=== PATIENT | female | born 1950 | race Caucasian/White ===

== ENCOUNTER 2016-09-06 14:36 | Outpatient (CLI) | payer MEDICAID ==
[2016-09-06 18:57] LABS: EOSINOPHILS # (AUTO) 0.2 10^3/uL (0.0-0.7); EOSINOPHILS % (AUTO) 6.1 %; HCT - HEMATOCRIT 37.8 % (37.0-47.0); HGB - HEMOGLOBIN 12.5 g/dL (12.0-16.0); LYMPHOCYTES # (AUTO) 1.2 10^3/uL (1.5-3.5); MEAN CORPUSCULAR HEMOGLOBIN 29.5 pg (27.0-31.0); MEAN CORPUSCULAR VOLUME 89.5 fL (81.0-99.0); MEAN PLATELET VOLUME 9.7 fL (7.9-10.8); MONOCYTES # (AUTO) 0.3 10^3/uL (0.0-1.0); MONOCYTES % (AUTO) 8.2 %; NEUTROPHILS # (AUTO) 2.1 10^3/uL (1.5-6.6); NEUTROPHILS % (AUTO) 53.7 %; NUCLEATED RED BLOOD CELLS AUTO 0.1 /100WBC; RED BLOOD COUNT 4.22 10^6/uL (4.20-5.40); RED CELL DISTRIBUTION WIDTH 13.8 % (12.0-15.0)
[2016-09-06 19:15] LABS: ALBUMIN/GLOBULIN RATIO 1.5 (1.0-2.2); BILIRUBIN,TOTAL 0.6 mg/dL (0.2-1.0); CREATININE 0.7 mg/dL (0.4-1.0); TOTAL PROTEIN 6.8 g/dL (6.7-8.2)
[2016-09-06 19:39] LABS: THYROID STIMULATING HORMONE 1.39 uIU/mL (0.34-5.60)
== END 2016-09-06 14:37 | disposition home or self-care (01) ==
LOC: LAB.F 14:36
PROVIDERS: ATTEND Nurse Practitioner Family
DX: L65.9 Nonscarring hair loss, unspecified (principal)
CPT/HCPCS: 36415; 80053; 84439; 84443; 84481; 85025

== ENCOUNTER 2016-09-24 08:19 | Outpatient (CLI) | payer MEDICAID ==
[2016-09-24 12:30] LABS: CHOL/HDL RATIO 2.8 (<4.4); CHOLESTEROL 215 mg/dL; HDL CHOLESTEROL 77 mg/dL; IRON 91 ug/dL (28-170); LDL/HDL RATIO 1.6 (<4.4); TOTAL IRON BINDING CAPACITY 287 ug/dL (250-450); TRANSFERRIN 205 mg/dL (192-382); TRIGLYCERIDES 84 mg/dL; VLDL CHOLESTEROL 17 mg/dL
== END 2016-09-24 08:20 | disposition home or self-care (01) ==
LOC: LAB.F 08:19
PROVIDERS: ATTEND Nurse Practitioner Family
DX: Z13.6 Encounter for screening for cardiovascular disorders (principal)
CPT/HCPCS: 36415; 80061; 83540; 84466

== ENCOUNTER 2019-05-31 07:14 | Outpatient (CLI) | payer MEDICARE, OTHER ==
[2019-05-31 10:45] LABS: BUN - BLOOD UREA NITROGEN 24 mg/dL (6-20); CALCIUM 8.8 mg/dL (8.5-10.3); CARBON DIOXIDE - CO2 29 mmol/L (21-32); CHLORIDE 101 mmol/L (101-111); CHOL/HDL RATIO 3.1 (<4.4); CHOLESTEROL 227 mg/dL; CREATININE 0.9 mg/dL (0.4-1.0); GFR - MDRD 62 (>89); GLUCOSE 90 mg/dL (70-100); HDL CHOLESTEROL 74 mg/dL; LDL CHOLESTEROL,CALCULATED 138 mg/dL; LDL/HDL RATIO 1.9 (<4.4); SODIUM 137 mmol/L (135-145); VLDL CHOLESTEROL 15 mg/dL
== END 2019-05-31 07:15 | disposition home or self-care (01) ==
LOC: LAB.S 07:14
PROVIDERS: ATTEND Physician Assistant
DX: L65.9 Nonscarring hair loss, unspecified (principal); H04.123 Dry eye syndrome of bilateral lacrimal glands; Z79.899 Other long term (current) drug therapy
CPT/HCPCS: 36415; 80048; 80061; 82306; 83721; 84443

== ENCOUNTER 2020-02-18 16:51 | Outpatient (CLI) | payer MEDICARE, OTHER | END 2020-02-18 16:52 | disposition home or self-care (01) | LOC: COV 16:51 | PROVIDERS: ATTEND Family Medicine | DX: R09.81 Nasal congestion (principal); Z20.828 Contact with and (suspected) exposure to other viral communicable diseases ==

== ENCOUNTER 2020-07-28 14:12 | Outpatient (CLI) | payer MEDICARE, OTHER ==
--- NOTE | 2020-07-29 12:10 | Mammography Report ---
BILATERAL DIGITAL SCREENING MAMMOGRAM 3D/2D WITH EXAGGERATED CC: 07/28/2020 CLINICAL: Family history of breast cancer. Comparison mammograms 01/01/2016, 10/11/2013. The tissue of both breasts is heterogeneously dense. Th is may lower the sensitivity of mammography. No significant masses, calcifications, or other findings are seen in either breast. IMPRESSION: NEGATIVE There is no mammographic evidence of malignancy. A 1 year screening mammogram is recommended. This exam was interpreted at Station ID: [id number]. NOTE: For mammograms, a report in lay terms will be sent to the patient. Approximately 15% of breast malignancies will not be visualized mammographically. In the management of a palpable breast mass, a negative mammogram must not discourage biopsy of a clinically suspicious lesion. Electronically Signed By: Ayan Solo M.D. slc/:07/28/2020 15:33:45 ACR BI-RADS Category 1: Negative 3341F PARENCHYMAL PATTERN: (D) - The breast(s) demonstrate(s) heterogeneously dense fibroglandular jose montanez. BI-RADS CATEGORY: (1) - 1 RECOMMENDATION: (ANNUAL) - Recommend routine annual screening mammography. [id number] 1 year screening LATERALITY: (B)
== END 2020-07-28 14:13 | disposition home or self-care (01) ==
LOC: DI.S 14:12
PROVIDERS: ATTEND Obstetrics & Gynecology
DX: Z12.31 Encounter for screening mammogram for malignant neoplasm of breast (principal)

== ENCOUNTER 2021-11-21 15:26 | Outpatient (CLI) | payer MEDICARE, OTHER ==
--- NOTE | 2021-11-21 15:34 | XRAY Report ---
PROCEDURE: Hand 3 View RT INDICATIONS: RIGHT FINGER PAIN/3RD AND 4TH TECHNIQUE: 3 views of the hand(s) acquired. COMPARISON: None FINDINGS: Bones: No fractures or dislocations. No suspicious bony lesions. Scattered mild IP degenerative na rrowing. Soft tissues: No suspicious soft tissue calcifications. IMPRESSION: Scattered IP arthritic change. Reviewed by: Kim Griggs MD on 11/21/2021 3:33 PM PDT Approved by: Kim Griggs MD on 11/21/2021 3:33 PM PDT Station ID: [id number]
== END 2021-11-21 15:27 | disposition home or self-care (01) ==
LOC: DI.S 15:26
PROVIDERS: ATTEND Physician Assistant Medical
DX: M19.041 Primary osteoarthritis, right hand (principal)

== ENCOUNTER 2023-03-18 08:15 | Outpatient (CLI) | payer MEDICARE ==
--- NOTE | 2023-03-18 09:27 | DEXA Report ---
PROCEDURE: Dexa Spine and/or Hip INDICATIONS: POST MENOPAUSAL TECHNIQUE: Dual energy x-ray absorptiometry (DXA) was performed on a [employer] System. Regions measur ed are the AP Spine, femoral neck, and if needed forearm. COMPARISON: None FINDINGS: Lumbar Spine: Bone Mineral Density 0.919 g/cm/cm,T score -2.2. Left Femoral Neck: Bone Mineral Density 0.692 g/cm/cm, T score -2.5. Left Hip: Bone Mineral Density 0.726 g/cm/cm,T score -2.2. (T score greater or equal to -1.0: NORMAL) (T score from -1.1 to -2.4: OSTEOPENIA) (T score less than or equal to -2.5 to: OSTEOPOROSIS) Impression: By WHO criteria, this patient has osteoporosis. Patients with diagnosis of osteoporosis or osteopenia should have regular bone mineral density assess ment. For those eligible for Medicare, routine testing is allowed once every 2 years. Testing frequ ency can be increased for patients who have rapidly progressing disease or for those who are receivin g medical therapy to restore bone mass. Reviewed by: Floyd Wellington MD on 03/18/2023 9:26 AM PST Approved by: Floyd Wellington MD on 03/18/2023 9:26 AM PST Station ID: [id number]
== END 2023-03-18 08:16 | disposition home or self-care (01) ==
LOC: DI 08:15
PROVIDERS: ATTEND Registered Nurse
DX: M81.0 Age-related osteoporosis without current pathological fracture (principal); Z78.0 Asymptomatic menopausal state

== ENCOUNTER 2023-03-18 08:17 | Outpatient (CLI) | payer MEDICARE ==
--- NOTE | 2023-03-23 12:58 | Mammography Report ---
BILATERAL DIGITAL SCREENING MAMMOGRAM 3D/2D: 03/18/2023 CLINICAL: Routine screening. Comparison is made to exams dated: 07/28/2020 mammogram - [facility], 02/01/2016 ma mmogram, and 10/11/2013 mammogram - [facility]. Both breasts are heterogeneously dense, which may obscure small masses (category c / 51-75% glandular tissue). No significant masses, calcifications, or other findings are seen in either breast. There has been no significant interval change. IMPRESSION: NEGATIVE There is no mammographic evidence of malignancy. A 1 year screening mammogram is recommended. Based on the Tyrer Cuzick model (a risk assessment model) the patients lifetime risk is 7.8% and her 10 year risk is 5.3%. According to the ACR, ACS, and NCCN guidelines, an annual breast MRI exam hugo g with mammogram is recommended if the patients lifetime risk is 20% or greater. This exam was interpreted at Station ID: [id number]. NOTE: For mammograms, a report in lay terms will be sent to the patient. Approximately 15% of breast malignancies will not be visualized mammographically. In the management of a palpable breast mass, a negative mammogram must not discourage biopsy of a clinically suspicious lesion. Electronically Signed By: Benjamín lebron/siomara:03/18/2023 12:15:11 letter sent: No_Letter ACR BI-RADS Category 1: Negative 3341F PARENCHYMAL PATTERN: (D) - The breast(s) demonstrate(s) heterogeneously dense fibroglandular parshamikay lisseth. BI-RADS CATEGORY: (1) - 1 Mammogram [id number] 1 year screening LATERALITY: (B)
== END 2023-03-18 08:18 | disposition home or self-care (01) ==
LOC: DI 08:17
PROVIDERS: ATTEND Registered Nurse
DX: Z12.31 Encounter for screening mammogram for malignant neoplasm of breast (principal); R92.333 Mammographic heterogeneous density, bilateral breasts

== ENCOUNTER 2023-09-12 10:18 | Emergency (ER) | payer MEDICARE ==
[2023-09-12 10:43] VITALS: O2SAT 99
--- NOTE | 2023-09-12 12:01 | XRAY Report ---
PROCEDURE: Knee 4+V LT INDICATIONS: Trauma TECHNIQUE: 4 views of the knee(s) were acquired. COMPARISON: None. FINDINGS: Bones: No fractures or dislocations. No suspicious bony lesions. Medial tibiofemoral joint space narrowing with osteophytosis. Soft tissues: No knee joint effusion. No suspicious soft tissue calcifications or masses. IMPRESSION: No acute bony abnormality. If there remains a high clinical concern for fracture, including inability to bear weight, consider cross-sectional imaging to exclude an occult fracture. Reviewed by: Maximus Balderas MD on 09/12/2023 11:59 AM PDT Approved by: Maximus Balderas MD on 09/12/2023 11:59 AM PDT Station ID: [id number]
--- NOTE | 2023-09-12 12:01 | XRAY Report ---
PROCEDURE: Wrist 3+V RT INDICATIONS: injury/wrist pain TECHNIQUE: 4 views of the wrist were acquired. COMPARISON: None. FINDINGS: Bones: No fractures or dislocations. No suspicious bony lesions. Soft tissues: No suspicious soft tissue calcifications or masses. IMPRESSION: No acute bony abnormality. Reviewed by: Maximus Balderas MD on 09/12/2023 12:00 PM PDT Approved by: Maximus Balderas MD on 09/12/2023 12:00 PM PDT Station ID: [id number]
--- NOTE | 2023-09-12 12:08 | ED Physician Documentation ---
PD HPI Fall - Stated complaint Stated Complaint: GLF,BACK/HEAD PX - Chief complaint Chief Complaint: Trauma Ext - History obtained from History obtained from: Patient - History of Present Illness Mechanism of injury: Tripped Fall distance: Standing position Where injury occurred: [place] Timing - onset: How many days ago (2) Injury(ies) location: Head, Back (right flank to right sided abdomen. Not at ribs.), Right Hand Quality of pain: Aching Associated symptoms: AMS (dazed for several minutes, with nausea and vomited once. Has continued with some nausea and headache.). No: LOC, Neck pain, Weakness, Paresthesias Contributing factors: No: Anticoagulated Review of Systems Eyes: denies: Loss of vision, Decreased vision, Photophobia Neurologic: reports: Generalized weakness, Headache. denies: Focal weakness, Numbness PD PAST MEDICAL HISTORY - Past Medical History Past Medical History: Yes Cardiovascular: None Respiratory: None Neuro: None Endocrine/Autoimmune: None GI: None HR LEADER: Fibroids : None HEENT: None Psych: None Musculoskeletal: None Derm: None - Past Surgical History Past Surgical History: Yes /HR LEADER: Other - Present Medications Home Medications: Ambulatory Orders Medication Instructions Recorded Confirmed Calcium Citrate 500 mg PO DAILY 09/12/23 09/12/23 Cholecalciferol (Vitamin D3) 50 mcg PO DAILY 09/12/23 09/12/23 [Vitamin D3] Magnesium Oxide [Mag Ox] 400 mg PO DAILY 09/12/23 09/12/23 Melatonin 5 mg PO HS 09/12/23 09/12/23 Multivitamin 1 each PO DAILY 09/12/23 09/12/23 - Allergies Allergies/Adverse Reactions: Allergies Allergy/AdvReac Type Severity Reaction Status Date / Time Penicillins Allergy Rash Verified 09/12/23 10:32 Sulfa (Sulfonamide Allergy Nausea Verified 09/12/23 10:32 Antibiotics) - Social History Does the pt smoke?: No Smoking Status: Never smoker Does the pt drink ETOH?: Yes Does the pt have substance abuse?: No - Immunizations Immunizations are current?: No Immunizations: Other immun not current - POLST Patient has POLST: No PD ED PE NORMAL - Vitals Vital signs reviewed: Yes - General General: Alert and oriented X 3, No acute distress, Well developed/nourished - HEENT HEENT: PERRL, EOMI, Other (tenderness back of head without deformity. ) - Neck Neck: Supple, no meningeal sign, No bony TTP, No adenopathy - Cardiac Cardiac: RRR, No murmur - Respiratory Respiratory: Clear bilaterally - Abdomen Abdomen: Soft, Non tender - Back Back: No spinal TTP, Other (some soft tissue tender right flank to lateral abd area. ) - Derm Derm: Normal color, Warm and dry - Extremities Extremities: Other (right wrist with tender dorsal aspect with ROM and no deformity. knees tender anteriorly with good ROM. No noted effusion. ) Results - Vitals Vitals: Oxygen O2 Source Room air - Labs Labs: Laboratory Tests 09/12/23 12:56 Sodium 140 Potassium 3.8 Chloride 105 Carbon Dioxide 29 Anion Gap 6.0 BUN 19 Creatinine 0.9 Estimated GFR (MDRD) 62 L Glucose 88 Calcium 9.2 - Rads (name of study) head CT Relevant Findings:: Prelim report reviewed (no ICH nor fractures), EMP independent interpretation of test abd/pelvict CT Relevant Findings:: Prelim report reviewed (no noted organ injuries nor acute process. ), EMP independent interpretation of test right wrist Relevant Findings:: Prelim report reviewed, EMP independent interpretation of test (no fractures) knee xray Relevant Findings:: Prelim report reviewed, EMP independent interpretation of test (no fractures) PD Medical Decision Making - ED course Complexity details: reviewed results (no acute findings for imaging. Still having concussive syptoms, so to take it easy for couple of days.), considered differential (pt is concerned about ICH given the ongoing GALLEGOS and some nausea. Presumed mild concussive. We talked about the CT role for ICH and not for concussion itself. Can get imaging of head, also right back/abd, wrists and knees.), d/w patient Departure - Departure Disposition: 01 Home, Self Care Clinical Impression: Fall, accidental, Right wrist sprain, Head injury, Mild concussion, Abdominal muscle strain Condition: Stable Record reviewed to determine appropriate education?: Yes Follow-Up: Carlotta Hobbs ARNP [Primary Care Provider] - Comments: Your x-rays are normal without any signs of bony fracture. CT scan of the head did not show any bleeding swelling or fractures. Obviously you are having some headache still and feeling slightly off so by definition would say a mild concussion. Typically this lasts several days to week or so. Continue with some ibuprofen 2 to 3 tablets 2-3 times daily. Add Tylenol/acetaminophen 500 to 650 mg 4 times daily as well. Activity as tolerated but generally would go with security administrator activity for the next couple of days until still improving better. The CT of your abdomen did not show any organ injury nor rib fractures. Presumes some strain of the muscle of the abdominal wall. Similar suggestion of activity as tolerated with the anti-inflammatory etc. I would anticipate gradual improvement over the next several days to week more. We just do not bounce like we used to do. You can try local treatments such as heat or ice and lidocaine patches or such. Forms: PCP List Discharge Date/Time: 09/12/23 15:14
[2023-09-12] MEDS ORDERED: iohexoL-300 100 ML VIAL ONE (12:52)
[2023-09-12 13:23] LABS: CALCIUM 9.2 mg/dL (8.5-10.3); CREATININE 0.9 mg/dL (0.6-1.3); POTASSIUM 3.8 mmol/L (3.5-4.5)
[2023-09-12] MEDS: iohexoL-300 100 ML VIAL IVP ONE (14:20)
--- NOTE | 2023-09-12 14:28 | CT Report ---
PROCEDURE: Abdomen/Pelvis W INDICATIONS: fall with RUQ abd pain CONTRAST: 100 ML OMNI 300 TECHNIQUE: After the administration of intravenous contrast, a CT scan of the abdomen and pelvis was performed. Images were recorded and evaluated at appropriate window settings. Reformats: coronal and sagittal. F or radiation dose reduction, the following was used: automated exposure control, adjustment of mA and /or kV according to patient size. COMPARISON: None. FINDINGS: Image quality: Diagnostic. Lower chest: No pneumothorax. No contusions. Liver: Subcentimeter hypoattenuating liver lesions, too small to characterize by CT. Focal fat adjace nt to the falciform ligament. Gallbladder: No radiopaque stones or wall thickening. Biliary tree: No intrahepatic or extrahepatic dilation, accounting for age. Spleen: No splenomegaly. 1.1 cm pseudocystic lesion along the peripheral margin, benign in isolation. Pancreas: No pancreatic ductal dilation. Adrenals: No adrenal nodule. Kidneys and ureters: No hydronephrosis. No renal cystic lesion which requires follow up. No solid mas s. Stomach, bowel and peritoneum: No gastric or small bowel dilation. No abnormal wall thickening. No pa thologic free fluid. Diverticulosis without evidence of diverticulitis. Normal appendix. Lymph nodes: No central or retroperitoneal adenopathy. Vessels: No infrarenal aortic aneurysm. Patent portal vein. PELVIS Reproductive organs: 2.5 x 2.0 cm left ovarian mature teratoma with locules of macroscopic fat and ca lcifications; this is benign. Bladder: No abnormal wall thickening, accounting for underdistention. Pelvic lymph nodes: No pelvic adenopathy by size criteria. Bones: No aggressive osseous abnormality. Other: No significant ventral or inguinal hernia. IMPRESSION: No findings to explain the patient's right upper quadrant pain. No displaced fractures or evidence of lung or solid organ injury. Reviewed by: Maximus Balderas MD on 09/12/2023 2:26 PM PDT Approved by: Maximus Balderas MD on 09/12/2023 2:26 PM PDT Station ID: [id number]
--- NOTE | 2023-09-12 14:29 | CT Report ---
PROCEDURE: Head WO INDICATIONS: fall with persisting GALLEGOS/nasuesa TECHNIQUE: Noncontrast 4.5 mm thick angled axial sections acquired from the foramen magnum to the vertex. For r adiation dose reduction, the following was used: automated exposure control, adjustment of mA and/or kV according to patient size. COMPARISON: None. FINDINGS: Image quality: Excellent. CSF spaces: Basal cisterns are patent. No extra-axial fluid collections. Ventricles are normal in size and shape. Brain: No midline shift. No intracranial masses or hemorrhage. Batista-white matter interface is norm al. Skull and face: Calvarium and visualized facial bones are intact, without suspicious lesions. Sinuses: Visualized sinuses and mastoids are clear. IMPRESSION: No acute intracranial pathology. Reviewed by: Maximus Balderas MD on 09/12/2023 2:28 PM PDT Approved by: Maximus Balderas MD on 09/12/2023 2:28 PM PDT Station ID: [id number]
[2023-09-12] MEDS: ACETAMINOPHEN 500 MG TABLET PO STA (15:10)
[2023-09-12] MEDS: KETOROLAC 15 MG/ML VIAL IVP STA (15:10)
[2023-09-12 15:16] VITALS: BP 125/62
== END 2023-09-12 15:14 | disposition home or self-care (01) ==
LOC: ED 10:18
DX: S06.0X0A Concussion without loss of consciousness, initial encounter (principal); S63.501A Unspecified sprain of right wrist, initial encounter; S39.011A Strain of muscle, fascia and tendon of abdomen, initial encounter; W18.39XA Other fall on same level, initial encounter; W54.1XXA Struck by dog, initial encounter
CPT/HCPCS: 36415; 70450; 73110; 73564; 74177; 80048; 99283; 99284; A9270; Q9967

== ENCOUNTER 2023-12-12 07:17 | Outpatient (CLI) | payer MEDICARE ==
[2023-12-12 15:17] LABS: EOSINOPHILS # (AUTO) 0.3 10^3/uL (0.0-0.7); EOSINOPHILS % (AUTO) 6.7 %; HCT - HEMATOCRIT 41.7 % (37.0-47.0); HGB - HEMOGLOBIN 13.4 g/dL (12.0-16.0); LYMPHOCYTES # (AUTO) 1.4 10^3/uL (1.5-3.5); LYMPHOCYTES % (AUTO) 34.4 %; MEAN CORPUSCULAR HEMOGLOBIN 29.6 pg (27.0-31.0); MEAN CORPUSCULAR HGB CONC 32.1 g/dL (32.0-36.0); MEAN CORPUSCULAR VOLUME 92.3 fL (81.0-99.0); MEAN PLATELET VOLUME 11.1 fL (7.9-10.8); MONOCYTES # (AUTO) 0.4 10^3/uL (0.0-1.0); MONOCYTES % (AUTO) 9.5 %; NEUTROPHILS # (AUTO) 1.9 10^3/uL (1.5-6.6); NEUTROPHILS % (AUTO) 48.2 %; PLT - PLATELET COUNT 260 10^3/uL (130-450); RED BLOOD COUNT 4.52 10^6/uL (4.20-5.40); RED CELL DISTRIBUTION WIDTH 13.8 % (12.0-15.0)
[2023-12-12 15:39] LABS: ALBUMIN/GLOBULIN RATIO 1.5 (1.0-2.2); ALKALINE PHOSPHATASE 61 IU/L (42-121); ALT ALANINE AMINOTRANSFERASE 10 IU/L (10-60); AST ASPARTATE AMINOTRANSFERASE 16 IU/L (10-42); BILIRUBIN,TOTAL 0.6 mg/dL (0.2-1.0); BUN - BLOOD UREA NITROGEN 17 mg/dL (6-20); CARBON DIOXIDE - CO2 29 mmol/L (21-32); CHLORIDE 104 mmol/L (101-111); CHOL/HDL RATIO 2.9 (<4.4); CHOLESTEROL 211 mg/dL; CREATININE 0.8 mg/dL (0.6-1.3); GFR - MDRD 71 (>89); GLUCOSE 83 mg/dL (74-104); HDL CHOLESTEROL 72 mg/dL; LDL CHOLESTEROL,CALCULATED 120 mg/dL; LDL/HDL RATIO 1.7 (<4.4); POTASSIUM 3.8 mmol/L (3.5-4.5); SODIUM 138 mmol/L (135-145); TOTAL PROTEIN 6.7 g/dL (6.4-8.9); TRIGLYCERIDES 95 mg/dL; VLDL CHOLESTEROL 19 mg/dL
[2023-12-12 15:51] LABS: THYROID STIMULATING HORMONE 2.74 uIU/mL (0.34-5.60)
== END 2023-12-12 07:18 | disposition home or self-care (01) ==
LOC: LAB.S 07:17
PROVIDERS: ATTEND Registered Nurse
DX: Z13.228 Encounter for screening for other metabolic disorders (principal); Z13.220 Encounter for screening for lipoid disorders; Z13.29 Encounter for screening for other suspected endocrine disorder; Z13.0 Encounter for screening for diseases of the blood and blood-forming organs and certain disorders involving the immune mechanism
CPT/HCPCS: 36415; 80053; 80061; 83721; 84443; 85025